=== PATIENT | female | born 1975 | race Caucasian/White ===

== ENCOUNTER 2022-03-16 08:15 | Outpatient (CLI) | payer OTHER, SELFPAY ==
[2022-03-16 14:46] LABS: Albumin* 4.9 g/dL (3.3-5.0); Chloride* 106 mmol/L (96-114)
[2022-03-16 14:47] LABS: Potassium* 4.6 mmol/L (3.6-5.1); Sodium* 140 mmol/L (135-149)
[2022-03-16 14:49] LABS: Alanine Aminotransferase* 22 U/L (4-35); Alkaline Phosphatase* 93 U/L (40-150); Aspartate Amino Transferase* 22 U/L (12-35); Bilirubin Total* 0.5 mg/dL (0.1-1.5); Blood Urea Nitrogen* 12 mg/dL (5-24); Carbon Dioxide* 25 mmol/L (20-32); Cholesterol* 245 mg/dL (90-199); Creatinine* 0.9 mg/dL (0.5-1.5); Estimated Glomerular Filt Rate 79 ml/min; Glucose* 101 mg/dL (60-115); Total Protein* 7.7 g/dL (6.0-8.3); Triglycerides* 139 mg/dL (40-149)
[2022-03-16 14:50] LABS: Calcium* 9.5 mg/dL (8.4-10.6); HDL Cholesterol* 51 mg/dL (>=50); LDL Cholesterol Calculated 166 mg/dL (<100)
[2022-03-16 15:54] LABS: Free T4 Free Thyroxine* 0.81 ng/dL (0.70-1.85)
== END 2022-03-16 08:16 | disposition home or self-care (01) ==
PROVIDERS: PCP Emergency Medicine; Visit Provider Emergency Medicine
DX: I10 Essential (primary) hypertension (principal); E66.01 Morbid (severe) obesity due to excess calories; E78.5 Hyperlipidemia, unspecified; R73.03 Prediabetes
CPT/HCPCS: 80053; 80061; 84439; 84443

== ENCOUNTER 2023-07-12 16:30 | Outpatient (CLI) | payer OTHER, SELFPAY | END 2023-07-12 16:31 | disposition home or self-care (01) | LOC: NFLDREF 07-13 07:26 | PROVIDERS: PCP Emergency Medicine; Referring Provider Emergency Medicine; Visit Provider Emergency Medicine | DX: R05.3 Chronic cough (principal); I10 Essential (primary) hypertension; E78.5 Hyperlipidemia, unspecified; K76.0 Fatty (change of) liver, not elsewhere classified; R73.03 Prediabetes; R79.89 Other specified abnormal findings of blood chemistry | CPT/HCPCS: 80053; 80061; 84439; 84443 ==

== ENCOUNTER 2023-10-17 08:07 | Outpatient (CLI) | payer OTHER, SELFPAY | END 2023-10-17 08:08 | disposition home or self-care (01) | LOC: NFLDREF 10-18 08:10 | PROVIDERS: PCP Emergency Medicine; Referring Provider Emergency Medicine; Visit Provider Emergency Medicine | DX: I10 Essential (primary) hypertension (principal); E78.2 Mixed hyperlipidemia; R79.89 Other specified abnormal findings of blood chemistry; E66.01 Morbid (severe) obesity due to excess calories | CPT/HCPCS: 80048; 80061; 84439; 84443 ==

== ENCOUNTER 2023-10-24 07:55 | Outpatient (CLI) | payer OTHER, SELFPAY ==
--- NOTE | 2023-10-24 08:15 | CRLHL7_ITS ---
For Patients: As a result of the Century Cures Act, medical imaging exams and procedure reports are released immediately into your electronic medical record. You may view this report before your referring provider. If you have questions, please contact your health care provider. BILATERAL SCREENING MAMMOGRAM WITH COMPUTER-AIDED DETECTION AND TOMOSYNTHESIS TECHNIQUE: CC and MLO views were obtained. These mammographic images have been obtained using full-field digital technique. These mammographic images were interpreted with the benefit of computer-aided detection. Breast Tomosynthesis was used in this interpretation. COMPARISON FILM: 09/17/20. FINDINGS: There are scattered areas of fibroglandular density. IMPRESSION: There is no radiographic evidence for malignancy. ASSESSMENT: BI-RADS Category 1: Negative RECOMMENDATION: Routine screening mammogram in 1 year. A lay language report of this examination will be provided to the patient. Wes Montes M.D. Diagnostic Radiologist [email or web address] SP/Dictated by: Wes Montes MD @ 10/24/2023 10:10:00 AM (Electronically Signed)
== END 2023-10-24 07:56 | disposition home or self-care (01) ==
PROVIDERS: PCP Emergency Medicine; Visit Provider Emergency Medicine
DX: Z12.31 Encounter for screening mammogram for malignant neoplasm of breast (principal)
CPT/HCPCS: 77063; 77067

== ENCOUNTER 2023-12-25 06:35 | Outpatient (CLI) | payer OTHER, SELFPAY ==
--- NOTE | 2023-12-25 08:04 | W.ANESCHARGE ---
Anesthesia Charges Start Date/Time Anesthesia Start Date: 12/25/23 Anesthesia Start Time: 07:16 Stop Date/Time Anesthesia Stop Date: 12/25/23 Anesthesia Stop Time: 07:57
--- NOTE | 2023-12-25 09:44 | W.ANESCHARGE ---
Anesthesia Charges Start Date/Time Anesthesia Start Date: 12/25/23 Anesthesia Start Time: 07:16 Stop Date/Time Anesthesia Stop Date: 12/25/23 Anesthesia Stop Time: 07:57
== END 2023-12-25 06:36 | disposition home or self-care (01) ==
LOC: OP CLINIC 06:37
PROVIDERS: PCP Emergency Medicine; Visit Provider Surgery
DX: R19.5 Other fecal abnormalities (principal); D12.0 Benign neoplasm of cecum; D12.2 Benign neoplasm of ascending colon; D12.3 Benign neoplasm of transverse colon; D12.5 Benign neoplasm of sigmoid colon; K57.30 Diverticulosis of large intestine without perforation or abscess without bleeding
CPT/HCPCS: 00811; 45385; 88305; J2704